=== PATIENT | male | born 1960 | race Caucasian/White ===

== ENCOUNTER 2020-11-22 15:18 | Outpatient (REF) | payer OTHER, SELFPAY | END 2020-11-22 15:19 | disposition home or self-care (01) | LOC: HO.LAB 15:18 | PROVIDERS: Visit Provider Nurse Practitioner Family | DX: L03.211 Cellulitis of face (principal); H00.019 Hordeolum externum unspecified eye, unspecified eyelid | CPT/HCPCS: 87071; 87077; 87186; 87205 ==

== ENCOUNTER 2020-12-11 11:18 | Outpatient (REF) | payer OTHER, SELFPAY ==
[2020-12-11 14:10] LABS: Basophils Percent Auto 0.8 % (0-2); MANUAL DIFF FLAG SCAN; Mean Corpuscular HGB Conc 33.3 g/dl (31.0-36.0); Monocytes Absolute Auto 0.5 X10*3/uL (0.1-1.2); PLT CLUMP 1; SCAN SMEAR FLAG 1
[2020-12-11 14:12] LABS: Eosinophils Absolute Auto 0.2 X10*3/uL (0.0-0.4); Eosinophils Percent Auto 3.3 % (0-4); Hematocrit 40.8 % (42-52); Hemoglobin 13.6 g/dl (14.0-18.0); Imm Gran Abs Auto 0.02 X10*3/uL (0.00-0.03); Imm Gran Pct Auto 0.4 % (0.0-0.4); Lymphocytes Absolute Auto 1.2 X10*3/uL (1.2-4.9); Lymphocytes Percent Auto 24.6 % (20-40); Mean Corpuscular Hemoglobin 31.2 pg (27.0-33.0); Mean Corpuscular Volume 93.6 fL (80-98); Mean Platelet Volume 11.4 fL (9.4-12.4); Monocytes Percent Auto 9.4 % (2-11); Neutrophils Percent Auto 61.5 % (45-73); Red Blood Count 4.36 X10*6/uL (4.60-5.80); Red Cell Distribution Width 13.3 % (11.0-16.0); White Blood Count 4.9 X10*3/uL (4.8-10.8)
[2020-12-11 14:38] LABS: Alanine Aminotransferase 110 U/L (0-40); Albumin Level 3.6 g/dL (3.5-5.0); Alkaline Phosphatase 97 U/L (39-117); Anion Gap 15 (12-20); Aspartate Amino Transferase 111 U/L (5-37); Bilirubin Total 1.5 mg/dL (0.0-1.0); Blood Urea Nitrogen 9 mg/dL (9-16); Calcium 9.4 mg/dL (8.4-10.2); Carbon Dioxide 23 mmol/L (22-29); Chloride 106 mmol/L (96-108); Estimated Glomerular Filt Rate > 60; Glucose Random 214 mg/dL (60-115); Potassium 3.9 mmol/L (3.3-5.1); Sodium 140 mmol/L (135-145)
[2020-12-11 14:43] LABS: Platelet Count 76 X10*3/uL (160-400)
[2020-12-11 14:44] LABS: SLIDE REVIEW VERIFIED
[2020-12-12 08:47] LABS: HIV AB/AG Nonreactive (Nonreactive); HIV Num 1 0.05 S/CO (0.00-0.99); Hepatitis B Surface Antigen Negative (Negative); ~HepC Num1 7.52 S/CO (0.00-0.79); ~Hepatitis C Antibody Reactive (Nonreactive)
[2020-12-12 08:48] LABS: HBS Num1 1.07 mIU/mL (0-7.99); HBc Num1 11.95 S/CO (0.00-0.79); ~Hepatitis B Surface Antibody NONREACTIVE (Nonreactive)
[2020-12-12 10:44] LABS: HBc Num2 12.06 S/CO; HBc Num3 11.38 S/CO; Hepatitis B Core Antibody Reactive (Nonreactive)
[2020-12-13 08:19] LABS: Hepatitis A Antibody IgM 0.23 Index (0-0.79); ~Hepatitis A Antibody IgM Nonreactive (Nonreactive)
[2020-12-13 14:22] LABS: Hepatitis B Core Antibody IgM NON-REACTIVE (NON-REACTIVE)
[2020-12-15 12:27] LABS: Vitamin C 0.5 mg/dL (0.2-2.1)
== END 2020-12-11 11:19 | disposition home or self-care (01) ==
LOC: HO.HMGCLDS 11:18
PROVIDERS: PCP Internal Medicine; Visit Provider Nurse Practitioner Family
DX: R23.3 Spontaneous ecchymoses (principal)
CPT/HCPCS: 36415; 80053; 82180; 85025; 86704; 86705; 86706; 86709; 86803; 87340; 87389

== ENCOUNTER 2020-12-13 13:50 | Emergency (ER) | payer OTHER, SELFPAY ==
[2020-12-13 14:00] VITALS: BP 91/59; PULSE 70; RESP 18; TEMP 36.8; O2SAT 96; BMI 28.1
--- NOTE | 2020-12-13 14:20 | ED.MEDCLEAR ---
HPI - Medical Clearance General Chief complaint: Medical Clearance <DEANNA Holland - Last Filed: 12/22/20 12:23> Stated complaint: medical clearance <DEANNA Holland - Last Filed: 12/22/20 12:23> Time Seen by Provider: 12/13/20 14:03 <DEANNA Holland - Last Filed: 12/22/20 12:23> History of Present Illness HPI Narrative: Patient who lives in a longterm admits to having 1 shot of alcohol and longterm requires an alcohol level, he has no complaint of illness or injury, he never lost consciousness he feels fine in his normal state of health <DEANNA Holland - Last Filed: 12/22/20 12:23> Related Information Home medications: Home Medications Medication Instructions Recorded Confirmed clonidine HCl 0.2 mg tablet 0.2 mg PO BEDTIME 09/09/20 09/09/20 dulaglutide 0.75 mg/0.5 mL 0.75 mg SUBCUT QWEEK 09/09/20 09/09/20 subcutaneous pen injector dulaglutide 0.75 mg/0.5 mL 1.5 mg SUBCUT QWEEK 09/09/20 09/09/20 subcutaneous pen injector folic acid 1 mg tablet 1 mg PO DAILY 09/09/20 09/09/20 furosemide 20 mg tablet 20 mg PO DAILY 09/09/20 09/09/20 gabapentin 800 mg tablet 800 mg PO TID 09/09/20 09/09/20 insulin degludec 100 unit/mL (3 20 unit SUBCUT BID 09/09/20 09/09/20 mL) subcutaneous pen levothyroxine 112 mcg tablet 112 mcg PO QAM 09/09/20 09/09/20 magnesium oxide,aspartate,citr mg PO 09/09/20 09/09/20 metformin 1,000 mg tablet 1,000 mg PO DAILY 09/09/20 09/09/20 metformin 500 mg tablet 1,000 mg PO 09/09/20 09/09/20 metoprolol succinate 25 mg 12.5 mg PO DAILY 09/09/20 09/09/20 tablet,extended release 24 hr multivitamin 1 tab PO DAILY 09/09/20 09/09/20 olanzapine 10 mg tablet 10 mg PO DAILY 09/09/20 09/09/20 pantoprazole 40 mg tablet,delayed 40 mg PO DAILY 09/09/20 09/09/20 release thiamine HCl (vitamin B1) 100 mg 100 mg PO DAILY 09/09/20 09/09/20 tablet triamcinolone acetonide 0.1 % 1 appl TOPICAL BID 09/09/20 09/09/20 topical cream clotrimazole 1 % topical cream appl TOPICAL 11/22/20 Previous Rx's Medication Instructions Recorded amoxicillin 875 mg-potassium 1 tab PO BID #20 tab 09/04/20 clavulanate 125 mg tablet doxycycline hyclate 100 mg tablet 100 mg PO BID #20 tab 09/04/20 meloxicam 15 mg tablet 15 mg PO DAILY #10 tab 09/09/20 doxycycline hyclate 100 mg tablet 100 mg PO BID 10 Days #20 tab 11/22/20 erythromycin 5 mg/gram (0.5 %) eye 1 appl OPHTHALMIC (EYE) QID 7 Days 11/22/20 ointment #3.5 g <DEANNA Holland - Last Filed: 12/22/20 12:23> Allergies/Adverse reactions: Allergies Allergy/AdvReac Type Severity Reaction Status Date / Time acetaminophen [ACETAMINOPHEN] Allergy Severe NECK Verified 12/13/20 14:03 SWELLING Penicillins [PENICILLINS] Allergy Severe vomitting Verified 12/13/20 14:03 Sulfa (Sulfonamide Allergy Mild ITCHING Verified 12/13/20 14:03 Antibiotics) [Sulfa (Sulfonamides)] quetiapine [From SEROQUEL] AdvReac Severe DYSKENESIA, Verified 12/13/20 14:03 SEVERE <DEANNA Holland - Last Filed: 12/22/20 12:23> Review of Systems Review of Systems: Negatives are no fever no chill no dizziness no weakness no fainting no headache no feeling faint no neck pain no back pain no chest pain no cough no runny nose no shortness of breath no palpitations no abdominal pain no nausea or vomiting <DEANNA Holland Last Filed: 12/22/20 12:23> Yes all other systems are reviewed and are negative <DEANNA Holland - Last Filed: 12/22/20 12:23> PMFSH Past Medical History Source: nursing notes reviewed <DEANNA Holland Last Filed: 12/22/20 12:23> Surgical History: Surgical History (Updated 12/13/20 @ 14:02 by Ernestina Santos RN) S/P triple vessel bypass <DEANNA Holland - Last Filed: 12/22/20 12:23> Social History Social History: Social History Advance Directives: No Advance Directives Information Provided: No <DEANNA Holland - Last Filed: 12/22/20 12:23> Physical Exam Vital Signs: Vital Signs: Last Vital Signs Temp 98.3 F 12/13/20 14:00 Pulse 70 12/13/20 14:00 Resp 18 12/13/20 14:00 BP 91/59 L 12/13/20 14:00 Pulse Ox 96 12/13/20 14:00 Body Mass Index 28.1 <DEANNA Holland - Last Filed: 12/22/20 12:23> Vital Signs: Last Vital Signs Temp 98.3 F 12/13/20 14:00 Pulse 70 12/13/20 14:00 Resp 18 12/13/20 14:00 BP 91/59 L 12/13/20 14:00 Pulse Ox 96 12/13/20 14:00 Body Mass Index 28.1 <Jayme Wilder MD - Last Filed: 01/23/21 18:49> Patient is calmer and cooperative A&O x3 Head is normocephalic atraumatic The neck is supple and nontender The chest is clear to auscultation bilaterally Heart no murmur Abdomen soft nontender Extremities is full range of motion x4 Skin no rash Neuro no gross deficit, speech and comprehension are normal, gait and balance are normal, no focal deficit <DEANNA Holland - Last Filed: 12/22/20 12:23> Course Course Course Narrative: Alcohol level was elevated but patient is clinically sober and in no distress and ambulates easily and is discharged back to the longterm <DEANNA Holland - Last Filed: 12/22/20 12:23> I have reviewed the chart <Jayme Wilder MD - Last Filed: 01/23/21 18:49> MDM - Medical Clearance Lab Data Labs: Lab Results 12/13/20 Range/Units 14:29 Ethyl Alcohol 130 mg/dL <DEANNA Holland - Last Filed: 12/22/20 12:23> Lab Results 12/13/20 Range/Units 14:29 Ethyl Alcohol 130 mg/dL <Jayme Wilder MD - Last Filed: 01/23/21 18:49> Discharge Plan Discharge Clinical Impression: Alcohol intoxication <DEANNA Holland - Last Filed: 12/22/20 12:23> Patient Disposition: Home, Self-Care <DEANNA Holland - Last Filed: 12/22/20 12:23> Additional Instructions: Alcohol level was 130 Patient has no sign of any significant injury or illness and is well-appearing Okay to return to longterm <DEANNA Holland - Last Filed: 12/22/20 12:23> Prescriptions: No Action metformin 500 mg tablet 1,000 mg PO RF: 0 olanzapine [Zyprexa] 10 mg tablet 10 mg PO DAILY RF: 0 gabapentin 800 mg tablet 800 mg PO TID RF: 0 metoprolol succinate 25 mg tablet extended release 24 hr 12.5 mg PO DAILY RF: 0 levothyroxine 112 mcg tablet 112 mcg PO QAM RF: 0 Trulicity 0.75 mg/0.5 mL pen injector 1.5 mg subcut QWEEK RF: 0 pantoprazole 40 mg tablet,delayed release (DR/EC) 40 mg PO DAILY RF: 0 furosemide [Lasix] 20 mg tablet 20 mg PO DAILY RF: 0 folic acid 1 mg tablet 1 mg PO DAILY RF: 0 magnesium oxide,aspartate,citr 400 mg magnesium capsule PO RF: 0 thiamine HCl (vitamin B1) 100 mg tablet 100 mg PO DAILY RF: 0 multivitamin Tablet 1 tab PO DAILY RF: 0 triamcinolone acetonide 0.1 % cream 1 appl topical BID RF: 0 clonidine HCl 0.2 mg tablet 0.2 mg PO BEDTIME RF: 0 Tresiba FlexTouch U-100 100 unit/mL (3 mL) insulin pen 20 unit subcut BID RF: 0 Trulicity 0.75 mg/0.5 mL pen injector 0.75 mg subcut QWEEK RF: 0 metformin 1,000 mg tablet 1,000 mg PO DAILY RF: 0 meloxicam [Mobic] 15 mg tablet 15 mg PO DAILY Qty: 10 RF: 0 clotrimazole 1 % cream topical RF: 0 erythromycin 5 mg/gram (0.5 %) ointment 1 appl ophthalmic (eye) QID 7 Days Qty: 3.5 RF: 0 doxycycline hyclate 100 mg tablet 100 mg PO BID 10 Days Qty: 20 RF: 0 doxycycline hyclate 100 mg tablet 100 mg PO BID Qty: 20 RF: 0 amoxicillin-pot clavulanate [Augmentin] 875-125 mg tablet 1 tab PO BID Qty: 20 RF: 0 <DEANNA Holland - Last Filed: 12/22/20 12:23> Interventions: ED Discharge Assessment Last Done: 12/13/20 15:28 <DEANNA Holland - Last Filed: 12/22/20 12:23> Discharge Date/Time: 12/13/20 15:31 <DEANNA Holland - Last Filed: 12/22/20 12:23>
[2020-12-13 15:02] LABS: Ethanol 130 mg/dL
== END 2020-12-13 15:31 | disposition home or self-care (01) ==
PROVIDERS: Physician Assistant Medical; Emergency Provider Emergency Medicine; PCP Internal Medicine
DX: F10.129 Alcohol abuse with intoxication, unspecified (principal); Y90.6 Blood alcohol level of 120-199 mg/100 ml; Z79.899 Other long term (current) drug therapy; Z71.41 Alcohol abuse counseling and surveillance of alcoholic
CPT/HCPCS: 36415; 80320; 99283

== ENCOUNTER 2021-02-20 13:45 | Outpatient (REF) | payer OTHER, SELFPAY | END 2021-02-20 13:46 | disposition home or self-care (01) | LOC: HO.MRI 13:45 | PROVIDERS: PCP Internal Medicine; Visit Provider Psychiatry & Neurology Neurology | DX: Z13.89 Encounter for screening for other disorder (principal) ==

== ENCOUNTER 2021-02-26 13:31 | Outpatient (REF) | payer OTHER, SELFPAY ==
--- NOTE | ~2021-02-26 | MR_ITS ---
EXAMINATION: MR BRAIN WITHOUT CONTRAST CLINICAL INFORMATION: Encephalopathy. Self-reported memory loss for [id number] years. COMPARISON: Maxillofacial radiographs 12/23/2018. CT cervical spine 05/13/2017. TECHNIQUE: Routine unenhanced MRI of the brain with additional coronal FLAIR images. FINDINGS: A moderate number of supratentorial scattered subcortical and periventricular white matter punctate T2 hyperintensities are identified. No perivenular lesions are visualized. No lesions of the middle cerebellar peduncles are noted. Mild-moderate diffuse commensurate prominence of the ventricles and sulci is noted. No disproportionate prominence of the temporal horns of the lateral ventricles is noted. No intracranial hemorrhage, tumors or acute infarcts are identified. The craniocervical junction and cerebellar tonsils are normal in configuration. No suspicious marrow abnormalities are identified. Normal flow-related signal intensity is identified in the major intracranial vessels and dural sinuses. Minimal scattered fluid signal intensity is noted in the mastoid air cells bilaterally and is of uncertain clinical significance. No significant mucosal thickening or retained secretions are noted within the paranasal sinuses. 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 Making allowances for expected artifacts, the orbits and globes are normal in appearance. MR/MR head/brain wo con IMPRESSION: 1. Mild-moderate white matter chronic small vessel ischemic changes and mild diffuse parenchymal volume loss of the brain. 2. No qualitative disproportional parenchymal volume loss of the hippocampi to specifically suggest Alzheimer's type neurodegenerative changes.
== END 2021-02-26 13:32 | disposition home or self-care (01) ==
LOC: HO.MRI 13:31
PROVIDERS: PCP Internal Medicine; Visit Provider Psychiatry & Neurology Neurology
DX: G93.40 Encephalopathy, unspecified (principal)
CPT/HCPCS: 70551

== ENCOUNTER 2021-03-01 12:17 | Outpatient (REF) | payer OTHER, SELFPAY ==
[2021-03-01 15:44] LABS: Folate 19.3 ng/mL (> or = 4.0); Vitamin B12 323 pg/mL (200-900)
[2021-03-02 08:26] LABS: Lyme Blot 1.78 index
[2021-03-03 09:30] LABS: Syphilis Screen Nonreactive (Nonreactive)
[2021-03-04 13:19] LABS: Lyme Abs Screen POSITIVE
[2021-03-04 13:29] LABS: 18 KD (IgG) Band NON-REACTIVE; 23 KD (IgG) Band NON-REACTIVE; 23 KD (IgM) Band NON-REACTIVE; 28 KD (IgG) Band NON-REACTIVE; 30 KD (IgG) Band NON-REACTIVE; 39 KD (IgM) Band NON-REACTIVE; 41 KD (IgM) Band NON-REACTIVE; 45 KD (IgG) Band NON-REACTIVE; 58 KD (IgG) Band NON-REACTIVE; 66 KD (IgG) Band NON-REACTIVE; 93 KD (IgG) Band NON-REACTIVE; Lyme IgG Blot Interp NEGATIVE (NEGATIVE); Lyme IgM Blot Interp NEGATIVE (NEGATIVE)
== END 2021-03-01 12:18 | disposition home or self-care (01) ==
LOC: HO.LAB 12:17
PROVIDERS: PCP Internal Medicine; Visit Provider Psychiatry & Neurology Neurology
DX: G93.40 Encephalopathy, unspecified (principal)
CPT/HCPCS: 36415; 82607; 82746; 86617; 86618; 86780

== ENCOUNTER 2021-09-11 10:02 | Outpatient (REF) | payer OTHER, SELFPAY ==
--- NOTE | 2021-09-11 | PFT_ITS ---
INDICATION: Shortness of breath. SPIROMETRY: FEV1 to FVC 81% with an FEV1 of 3.1 L, which is 98% predicted, and FVC of 3.84 L, which is 91% predicted. No significant response to bronchodilators noted. Maximum voluntary ventilation 90% predicted. LUNG VOLUMES: Total lung capacity 91% predicted. Residual volume 103% predicted. Expiratory reserve volume of 76% predicted. DIFFUSION CAPACITY: DLCO 60% predicted. COMPARISONS: None. INTERPRETATION: No obstructive nor restrictive ventilatory defects identified. No significant response to bronchodilators noted. Normal maximum voluntary ventilation. Lung volumes are within normal limits. However, the patient does have a moderate isolated diffusion impairment. Need to correct for hemoglobin. Otherwise, need to consider pulmonary vascular conditions and/or occult interstitial lung conditions. Clinical correlation warranted. Finn Melchor MD MR/MODL / [id number]
== END 2021-09-11 10:03 | disposition home or self-care (01) ==
LOC: HO.RESP 10:02
PROVIDERS: PCP Internal Medicine; Visit Provider Internal Medicine
DX: R06.02 Shortness of breath (principal)
CPT/HCPCS: 94060; 94727; 94729

== ENCOUNTER 2021-10-26 06:13 | Emergency (ER) | payer OTHER, SELFPAY ==
--- NOTE | ~2021-10-26 | CT_ITS ---
EXAMINATION: CT abdomen pelvis wo con CLINICAL INFORMATION: Reason for Exam R flank pain COMPARISON: No prior CT available for comparison. TECHNIQUE: Multidetector volumetric imaging was performed from the superior aspect of the liver through the pubic symphysis , noncontrasted study. Sagittal and coronal reformatted images were obtained on the technologist's workstation. This CT examination was performed using dose optimization techniques as appropriate, variously including the following: *Automated exposure control *Adjustment of mA and/or kV according to patient size (this includes techniques or standardized protocols for targeted exams where dose is matched to indication/reason for exam; i.e. extremities or head) *Use of iterative reconstruction technique DLP: 603 mGy-cm FINDINGS: LOWER THORAX: Included lung bases are clear. HEPATOBILIARY: Evaluation of the liver is limited on a noncontrasted study, there is heterogeneous texture of the liver, this combined with nodular surface raise concern for liver parenchymal disease liver cirrhosis. GALLBLADDER: Gallbladder unremarkable. SPLEEN: Spleen is enlarged 15 cm. PANCREAS: No focal mass or ductal dilatation. STOMACH AND GASTROINTESTINAL TRACT: Stomach is grossly unremarkable. There is no bowel distention or thickening. No CT evidence of appendicitis. ADRENALS: No adrenal nodules. KIDNEYS/URETERS: There are about 3 tiny nonobstructing stones in the lower calyces of the left kidney measuring up to 3 mm. There is a tiny 2 mm nonobstructing stone middle calyx right kidney. No hydronephrosis. Perinephric fat are clear. URINARY BLADDER: Partially decompressed. PELVIC VISCERA: There are prostate calcifications. Rectum and perirectal fat are clear. PERITONEUM: No free air or fluid. No ascites. LYMPH NODES: There are few mildly enlarged retroperitoneal para-aortic lymph nodes measuring up to 1 x 1.5 cm uncertain etiology. VASCULAR:There are aortic calcifications. Engorgement of the portal vein, splenic veins peritoneal anterior abdominal pain suggesting probably underlying portal hypertension portosystemic shunting BONES, ABDOMINAL WALL AND SOFT TISSUES: Cortical irregularity in the left iliac bone probably old injury. Mild arthritis. No destructive bone lesion. CT/CT abdomen pelvis wo con IMPRESSION: *Bilateral tiny nonobstructing kidney stones, no hydronephrosis. *Enlarged heterogeneous liver texture, nodular surface suggesting liver parenchymal disease likely hepatic cirrhosis. Evaluation of the liver is limited on noncontrasted study, may consider correlation with follow-up cross-sectional contrast enhanced liver protocol study CT scan or MRI. *Splenomegaly. *Engorgement of the portal veins and portal systemic anastomosis suggest underlying portal hypertension. No ascites. *Mildly enlarged retroperitoneal para-aortic lymph nodes preaortic lymph node measure up to 2 cm, uncertain etiology, this could be reactive versus neoplastic primary or metastatic,. Clinical correlation and follow-up recommended. (Referring physician staff is being called, to be alerted of the above findings and recommendations.) DC
--- NOTE | ~2021-10-26 | CT_ITS ---
EXAMINATION: CT CHEST, ABDOMEN AND PELVIS WITH CONTRAST CLINICAL INFORMATION: Assessing for possible malignancy. COMPARISON: Chest CT scan dated 05/01/2015. TECHNIQUE: Multidetector volumetric imaging was performed of the chest, abdomen and pelvis following IV administration of 100 mL of Omnipaque 300 intravenous contrast. Sagittal and coronal reformatted images were obtained on the technologist's workstation. There is some limitation secondary to respiratory motion artifact in the chest. This CT examination was performed using dose optimization techniques as appropriate, variously including the following: *Automated exposure control *Adjustment of mA and/or kV according to patient size (this includes techniques or standardized protocols for targeted exams where dose is matched to indication/reason for exam; i.e. extremities or head) DLP: 1348 mGy-cm FINDINGS: CHEST: LUNGS/PLEURA/AIRWAYS: Mild biapical scarring and subpleural cystic changes. Mild dependent atelectasis bilaterally, greatest in the lower lobes. No significant/suspicious pulmonary nodules are seen. There are no pleural effusions. The airways are patent. MEDIASTINUM: The thyroid gland is unremarkable. The thoracic aorta shows mild calcifications without significant dilatation. Moderate to severe coronary artery calcifications. No pericardial effusion. CHEST LYMPH NODES: Distal preesophageal nodule measuring 1.3 cm in short axis (image 45, series 5), (previously 0.9 cm). No significantly enlarged mediastinal, hilar or axillary lymph nodes. SOFT TISSUES: Unremarkable. ABDOMEN/PELVIS: LIVER, GALLBLADDER, AND BILIARY TREE: Diffuse decreased hepatic attenuation and nodular contour without enhancing abnormality. PANCREAS: Unremarkable. SPLEEN: 17.5 cm without focal abnormality (image 27, series 13). ADRENAL GLANDS: Unremarkable. KIDNEYS AND URETERS: Punctate calcification/calculi are seen bilaterally. No hydroureteronephrosis. BLADDER: Unremarkable. GASTROINTESTINAL TRACT: The stomach and proximal small bowel unremarkable. There is fecalization at the level the terminal ileum without abnormality. The ileocecal valve is unremarkable. The appendix is unremarkable. The colon and rectum are unremarkable. LYMPH NODES: Mildly prominent gastrohepatic lymph nodes. A customer contact representative lymph node measures 0.8 cm in short axis (image 55, series 5). VASCULAR: Mild to moderate atherosclerosis without significant dilatation. PELVIC VISCERA: Unremarkable. MUSCULOSKELETAL: Mild multilevel degenerative changes in the thoracolumbar spine without suspicious abnormality. SOFT TISSUES: Unremarkable. CT/CT abdomen pelvis w con IMPRESSION: 1. No definitive evidence for malignancy in the chest, abdomen and pelvis. There has been interval increase in size of a distal preesophageal nodule with otherwise benign features. The mild increase in size since 2015 suggests a benign/low-grade entity. This finding can be monitored for more short-term change with a repeat chest CT scan in 3-6 months. 2. Hepatic steatosis and cirrhosis and splenomegaly represent interval worsening from the previous study. Mildly enlarged gastrohepatic lymph nodes are similar. 3. Other incidental findings detailed above.
--- NOTE | ~2021-10-26 | CT_ITS ---
EXAMINATION: CT CHEST, ABDOMEN AND PELVIS WITH CONTRAST CLINICAL INFORMATION: Assessing for possible malignancy. COMPARISON: Chest CT scan dated 05/01/2015. TECHNIQUE: Multidetector volumetric imaging was performed of the chest, abdomen and pelvis following IV administration of 100 mL of Omnipaque 300 intravenous contrast. Sagittal and coronal reformatted images were obtained on the technologist's workstation. There is some limitation secondary to respiratory motion artifact in the chest. This CT examination was performed using dose optimization techniques as appropriate, variously including the following: *Automated exposure control *Adjustment of mA and/or kV according to patient size (this includes techniques or standardized protocols for targeted exams where dose is matched to indication/reason for exam; i.e. extremities or head) DLP: 1348 mGy-cm FINDINGS: CHEST: LUNGS/PLEURA/AIRWAYS: Mild biapical scarring and subpleural cystic changes. Mild dependent atelectasis bilaterally, greatest in the lower lobes. No significant/suspicious pulmonary nodules are seen. There are no pleural effusions. The airways are patent. MEDIASTINUM: The thyroid gland is unremarkable. The thoracic aorta shows mild calcifications without significant dilatation. Moderate to severe coronary artery calcifications. No pericardial effusion. CHEST LYMPH NODES: Distal preesophageal nodule measuring 1.3 cm in short axis (image 45, series 5), (previously 0.9 cm). No significantly enlarged mediastinal, hilar or axillary lymph nodes. SOFT TISSUES: Unremarkable. ABDOMEN/PELVIS: LIVER, GALLBLADDER, AND BILIARY TREE: Diffuse decreased hepatic attenuation and nodular contour without enhancing abnormality. PANCREAS: Unremarkable. SPLEEN: 17.5 cm without focal abnormality (image 27, series 13). ADRENAL GLANDS: Unremarkable. KIDNEYS AND URETERS: Punctate calcification/calculi are seen bilaterally. No hydroureteronephrosis. BLADDER: Unremarkable. GASTROINTESTINAL TRACT: The stomach and proximal small bowel unremarkable. There is fecalization at the level the terminal ileum without abnormality. The ileocecal valve is unremarkable. The appendix is unremarkable. The colon and rectum are unremarkable. LYMPH NODES: Mildly prominent gastrohepatic lymph nodes. A regional sales representative lymph node measures 0.8 cm in short axis (image 55, series 5). VASCULAR: Mild to moderate atherosclerosis without significant dilatation. PELVIC VISCERA: Unremarkable. MUSCULOSKELETAL: Mild multilevel degenerative changes in the thoracolumbar spine without suspicious abnormality. SOFT TISSUES: Unremarkable. CT/CT chest w con IMPRESSION: 1. No definitive evidence for malignancy in the chest, abdomen and pelvis. There has been interval increase in size of a distal preesophageal nodule with otherwise benign features. The mild increase in size since 2015 suggests a benign/low-grade entity. This finding can be monitored for more short-term change with a repeat chest CT scan in 3-6 months. 2. Hepatic steatosis and cirrhosis and splenomegaly represent interval worsening from the previous study. Mildly enlarged gastrohepatic lymph nodes are similar. 3. Other incidental findings detailed above.
--- NOTE | ~2021-10-26 | CT_ITS ---
EXAMINATION: CT HEAD WITHOUT CONTRAST CLINICAL INFORMATION: Assessing for primary malignancy. COMPARISON: MRI of the head dated 02/26/2021. TECHNIQUE: Contiguous axial imaging was performed from the skull base to vertex without intravenous administration of contrast. Coronal and sagittal reformatted images were obtained. This CT examination was performed using dose optimization techniques as appropriate, variously including the following: *Automated exposure control *Adjustment of mA and/or kV according to patient size (this includes techniques or standardized protocols for targeted exams where dose is matched to indication/reason for exam; i.e. extremities or head) *Use of iterative reconstruction technique DLP: 775 mGy-cm FINDINGS: There is mild widening of the cortical sulci and associated ventriculomegaly. Mild periventricular microvascular changes are seen. The lateral ventricles are symmetrical. The third and fourth ventricles are in their normal midline position. The basilar and prepontine cisterns are unremarkable. There is no acute intra or extracerebral abnormality. There is no mass effect or midline shift. Sections through the bony calvarium are unremarkable. The orbits are intact. Mild mucosal thickening in the ethmoid and sphenoid sinuses. No air-fluid levels. The mastoid air cells are clear. Deformity of the nasal bones with mild right lateral displacement. CT/CT head/brain wo con IMPRESSION: 1. No acute intracranial pathology. No evidence for intracranial mass. 2. Mild inflammatory changes in the paranasal sinuses as detailed above. 3. Probable old nasal bone fractures. Correlate with patient history.
[2021-10-26 06:26] VITALS: BP 132/82; BP 140/80; PULSE 69; PULSE 71; RESP 16; TEMP 36.7; O2SAT 97; O2SAT 98; BMI 27.7
--- NOTE | 2021-10-26 06:31 | ECG_ITS ---
Test Reason : ABD PAIN Blood Pressure : / mmHG Vent. Rate : 068 BPM Atrial Rate : 068 BPM P-R Int : 178 ms QRS Dur : 150 ms QT Int : 446 ms P-R-T Axes : 033 076 209 degrees QTc Int : 474 ms Normal sinus rhythm Possible Left atrial enlargement Left bundle branch block Abnormal ECG When compared with ECG of 01-MAY-2019 18:10, No significant change was found Referred By: Luz Marina Abdi Electronically Signed By:YAZMIN HUNTER MD
--- NOTE | 2021-10-26 06:40 | ED.GENADULT ---
HPI - General Adult General Chief complaint: Abdominal Pain Stated complaint: R flank pain Time Seen by Provider: 10/26/21 06:26 Source: patient Mode of arrival: ambulatory Limitations: no limitations History of Present Illness HPI narrative: Patient comes to the emergency room complaining of right-sided flank pain that started approximately 9 hours ago. Patient states it is sharp, radiates towards the right lower quadrant. Patient denies dysuria or hematuria. Patient complaining of nausea, vomiting diarrhea, no fever or chills. Related Data Home Medications Medication Instructions Recorded Confirmed clonidine HCl 0.2 mg tablet 0.2 mg PO BEDTIME 09/09/20 09/09/20 dulaglutide 0.75 mg/0.5 mL 1.5 mg SUBCUT QWEEK 09/09/20 09/09/20 subcutaneous pen injector dulaglutide 0.75 mg/0.5 mL 0.75 mg SUBCUT QWEEK 09/09/20 09/09/20 subcutaneous pen injector (Trulicity) folic acid 1 mg tablet 1 mg PO DAILY 09/09/20 09/09/20 furosemide 20 mg tablet (Lasix) 20 mg PO DAILY 09/09/20 09/09/20 gabapentin 800 mg tablet 800 mg PO TID 09/09/20 09/09/20 insulin degludec 100 unit/mL (3 20 unit SUBCUT BID 09/09/20 09/09/20 mL) subcutaneous pen (Tresiba FlexTouch U-100 insulin) levothyroxine 112 mcg tablet 112 mcg PO QAM 09/09/20 09/09/20 magnesium oxide,aspartate,citr mg PO 09/09/20 09/09/20 metformin 1,000 mg tablet 1,000 mg PO DAILY 09/09/20 09/09/20 metformin 500 mg tablet 1,000 mg PO 09/09/20 09/09/20 metoprolol succinate 25 mg 12.5 mg PO DAILY 09/09/20 09/09/20 tablet,extended release 24 hr multivitamin 1 tab PO DAILY 09/09/20 09/09/20 olanzapine 10 mg tablet (Zyprexa) 10 mg PO DAILY 09/09/20 09/09/20 pantoprazole 40 mg tablet,delayed 40 mg PO DAILY 09/09/20 09/09/20 release thiamine HCl (vitamin B1) 100 mg 100 mg PO DAILY 09/09/20 09/09/20 tablet triamcinolone acetonide 0.1 % 1 appl TOPICAL BID 09/09/20 09/09/20 topical cream clotrimazole 1 % topical cream appl TOPICAL 11/22/20 Previous Rx's Medication Instructions Recorded amoxicillin 875 mg-potassium 1 tab PO BID #20 tab 09/04/20 clavulanate 125 mg tablet (Augmentin) doxycycline hyclate 100 mg tablet 100 mg PO BID #20 tab 09/04/20 meloxicam 15 mg tablet (Mobic) 15 mg PO DAILY #10 tab 09/09/20 doxycycline hyclate 100 mg tablet 100 mg PO BID 10 Days #20 tab 11/22/20 erythromycin 5 mg/gram (0.5 %) eye 1 appl OPHTHALMIC (EYE) QID 7 Days 11/22/20 ointment #3.5 g ibuprofen 600 mg tablet 600 mg PO TID PRN #30 tab 10/26/21 Allergies Allergy/AdvReac Type Severity Reaction Status Date / Time acetaminophen [ACETAMINOPHEN] Allergy Severe NECK Verified 12/13/20 14:03 SWELLING Penicillins [PENICILLINS] Allergy Severe vomitting Verified 12/13/20 14:03 Sulfa (Sulfonamide Allergy Mild ITCHING Verified 12/13/20 14:03 Antibiotics) [Sulfa (Sulfonamides)] quetiapine [From SEROQUEL] AdvReac Severe DYSKENESIA, Verified 12/13/20 14:03 SEVERE Review of Systems Review of Systems: Constitutional : No Weight loss, No Fever, No Chills, No Night Sweats, No Fatigue, No Malaise ENT/Mouth : No Hearing loss, No Ear Pain, No Nasal Congestion, No Sinus Pain, No Hoarseness, No sore throat, No Rhinorrhea, No Swallowing Difficulty Eyes: No Eye Pain, No Swelling, No Redness, No Foreign Body, No Discharge, No Vision Changes Cardiovascular : No Chest Pain, No SOB, No Dyspnea on Exertion, No Orthopnea, No Edema, No Palpitations Respiratory : No Cough, No Sputum, No Wheezing, No Smoke Exposure, No Dyspnea Gastrointestinal : Complaining of nausea, No Vomiting, No Diarrhea, No Constipation, No abdominal Pain, No Hematochezia, No Melena Genitourinary : no irregular bleeding, No Dysuria, No Urinary Frequency, No Hematuria, No Urinary Incontinence, No Urgency, complaining of right-sided Flank Pain, No Urinary Flow Changes, No Hesitancy Musculoskeletal : No joint pain, No Myalgias, No Joint Swelling Skin : No Skin Lesions, No rash Neuro : No Weakness, No Numbness, No Paresthesias, No Loss of Consciousness, No Dizziness, No Headache Psych : No Anxiety/Panic, No Depression, No SI/HI/AH/VH, No Social Issues, Heme/Lymph: No Bruising, No Bleeding,No Lymphadenopathy Endocrine : No Polyuria, No Polydipsia, No Temperature Intolerance FOR[facility]LY [facility] Past Medical History Surgical History (Updated 12/13/20 @ 14:02 by Ernestina Santos RN) S/P triple vessel bypass Social History Social History Alcohol intake: current Alcohol type: wine Patient Tobacco Use Status: Current someday Tobacco user Use of substances other than those prescribed or required for medical reasons: No Advance Directives: Yes Advance Directives Information Provided: Yes Advance Directives on File: No Physical Exam ED Vital Signs: Vital Signs - 24 hr 10/26/21 06:26 10/26/21 07:40 10/26/21 08:57 Temperature 98.0 F 98.4 F 99.3 F Pulse Rate 71 74 72 Respiratory Rate 16 16 14 Blood Pressure 132/82 125/77 118/68 Pulse Oximetry 98 97 10/26/21 11:19 10/26/21 12:03 10/26/21 15:29 Temperature 97.8 F 97.8 F Pulse Rate 63 61 67 Respiratory Rate 17 16 Blood Pressure 124/75 129/71 153/86 H Pulse Oximetry 95 95 97 BMI result Body Mass Index 27.7 Const Other: Appearance: Alert. Oriented X3. No acute distress. Eyes: Pupils equal, round and reactive to light. ENT: Pharynx normal. Neck: Normal inspection. Neck supple. No lymph nodes noted. No crepitus CVS: Normal heart rate and rhythm. Pulses normal. Normal S1 and S2 Respiratory: No respiratory distress. Breath sounds normal. No Wheezing. No rales Abdomen: Soft , tenderness to palpation over the right upper quadrant, right lower quadrant and right flank Skin: Skin warm and dry. Normal skin color. Normal skin turgor. Extremities: No lower extremity edema. No Lacerations. No Rash Neuro: Oriented X 3. No motor deficit. No sensory deficit. Moving all extremities. No slurred speech. CN 2 through 12 grossly intact Psych: calm, cooperative, normal affect Course Course Course Narrative: Patient has no history urolithiasis. Patient will be given IV fluids, Toradol, although labs pending. Discussed the CT scan with the patient, patient states that he was unaware that he has cirrhosis. States he stopped drinking 3-4 months ago. Also, I discussed with the patient that there is a mildly enlarged retroperitoneal para aortic lymph node, uncertain etiology. I discussed the options with the patient, patient is extremely concerned, we will go ahead and order CT scan of head chest abdomen and pelvis to rule out malignancy. I discussed the CT findings with the patient, no signs of malignancy. Patient's pain likely musculoskeletal Medical Decision Making Lab Data Result diagrams: 10/26/21 06:42 10/26/21 06:42 Labs: Lab Results 10/26/21 10/26/21 10/26/21 Range/Units 06:42 06:42 11:16 WBC 6.4 (4.8-10.8) X10*3/uL RBC 4.59 L (4.60-5.80) X10*6/uL Hgb 13.6 L (14.0-18.0) g/dl Hct 40.6 L (42.0-52.0) % MCV 88.5 (80.0-98.0) fL MCH 29.6 (27.0-33.0) pg MCHC 33.5 (31.0-36.0) g/dl RDW 14.1 (11.0-16.0) % Plt Count 78 L (160-400) X10*3/uL MPV 9.9 (9.4-12.4) fL Immature Gran % (Auto) 0.6 H (0.0-0.4) % Neut % (Auto) 73.7 H (45-73) % Lymph % (Auto) 14.6 L (20-40) % [place] % (Auto) 8.6 (2-11) % Eos % (Auto) 1.9 (0-4) % Baso % (Auto) 0.6 (0-2) % Lymph # (Auto) 0.9 L (1.2-4.9) X10*3/uL [place] # (Auto) 0.6 (0.1-1.2) X10*3/uL Eos # (Auto) 0.1 (0.0-0.4) X10*3/uL Baso # (Auto) 0.0 (0.0-0.2) X10*3/uL Abs Immat Gran (auto) 0.04 H (0.00-0.03) X10*3/uL Absolute Neuts (auto) 4.7 (2.0-8.3) x10*3/uL Absolute Nucleated RBC 0.000 (0.0-0.012) X10*3/uL Nucleated RBC % (auto) 0.0 (0.0-0.2) /100WBC Sodium 135 (135-145) mmol/L Potassium 4.2 (3.3-5.1) mmol/L Chloride 100 (96-108) mmol/L Carbon Dioxide 26 (22-29) mmol/L Anion Gap 13 (12-20) BUN 11 (9-16) mg/dL Creatinine 1.09 (0.5-1.4) mg/dL Estim Creat Clear Calc 75.9 Estimated GFR > 60 POC Glucose 283 H (60-115) mg/dL Random Glucose 366 H* (60-115) mg/dL Calcium 9.5 (8.4-10.2) mg/dL Total Bilirubin 0.9 (0.0-1.0) mg/dL Direct Bilirubin 0.4 (0.0-0.5) mg/dL AST 49 H D (5-37) U/L ALT 71 H (0-40) U/L Alkaline Phosphatase 100 (39-117) U/L Total Protein 7.7 (6.5-8.0) g/dL Albumin 3.7 (3.5-5.0) g/dL Urine Color Urine Appearance Urine pH (5.0-8.0) Ur Specific Alex (1.005-1.025) Urine Protein (NEG-TRACE) MG/DL Urine Glucose (UA) (NEG) MG/DL Urine Ketones (NEG) MG/DL Urine Blood (NEG) Urine Nitrite (NEG) Ur Leukocyte Esterase (NEG) Urine RBC (0) /HPF Urine WBC (0-4) /HPF Ur Squamous Epith Cells /LPF Urine Bacteria /LPF Urine Mucus /LPF 10/26/21 Range/Units 11:17 WBC (4.8-10.8) X10*3/uL RBC (4.60-5.80) X10*6/uL Hgb (14.0-18.0) g/dl Hct (42.0-52.0) % MCV (80.0-98.0) fL MCH (27.0-33.0) pg MCHC (31.0-36.0) g/dl RDW (11.0-16.0) % Plt Count (160-400) X10*3/uL MPV (9.4-12.4) fL Immature Gran % (Auto) (0.0-0.4) % Neut % (Auto) (45-73) % Lymph % (Auto) (20-40) % [place] % (Auto) (2-11) % Eos % (Auto) (0-4) % Baso % (Auto) (0-2) % Lymph # (Auto) (1.2-4.9) X10*3/uL [place] # (Auto) (0.1-1.2) X10*3/uL Eos # (Auto) (0.0-0.4) X10*3/uL Baso # (Auto) (0.0-0.2) X10*3/uL Abs Immat Gran (auto) (0.00-0.03) X10*3/uL Absolute Neuts (auto) (2.0-8.3) x10*3/uL Absolute Nucleated RBC (0.0-0.012) X10*3/uL Nucleated RBC % (auto) (0.0-0.2) /100WBC Sodium (135-145) mmol/L Potassium (3.3-5.1) mmol/L Chloride (96-108) mmol/L Carbon Dioxide (22-29) mmol/L Anion Gap (12-20) BUN (9-16) mg/dL Creatinine (0.5-1.4) mg/dL Estim Creat Clear Calc Estimated GFR POC Glucose (60-115) mg/dL Random Glucose (60-115) mg/dL Calcium (8.4-10.2) mg/dL Total Bilirubin (0.0-1.0) mg/dL Direct Bilirubin (0.0-0.5) mg/dL AST (5-37) U/L ALT (0-40) U/L Alkaline Phosphatase (39-117) U/L Total Protein (6.5-8.0) g/dL Albumin (3.5-5.0) g/dL Urine Color YELLOW Urine Appearance CLEAR Urine pH 5.5 (5.0-8.0) Ur Specific Alex 1.025 (1.005-1.025) Urine Protein NEG (NEG-TRACE) MG/DL Urine Glucose (UA) >=1000 H (NEG) MG/DL Urine Ketones NEG (NEG) MG/DL Urine Blood NEG (NEG) Urine Nitrite NEG (NEG) Ur Leukocyte Esterase NEG (NEG) Urine RBC 0 (0) /HPF Urine WBC 0-2 (0-4) /HPF Ur Squamous Epith Cells NONE /LPF Urine Bacteria NONE /LPF Urine Mucus TRACE /LPF Imaging Data CT scan - head: Radiologist's impression: There is mild widening of the cortical sulci and associated ventriculomegaly. Mild periventricular microvascular changes are seen. The lateral ventricles are symmetrical. The third and fourth ventricles are in their normal midline position. The basilar and prepontine cisterns are unremarkable. There is no acute intra or extracerebral abnormality. There is no mass effect or midline shift. Sections through the bony calvarium are unremarkable. The orbits are intact. Mild mucosal thickening in the ethmoid and sphenoid sinuses. No air-fluid levels. The mastoid air cells are clear. Deformity of the nasal bones with mild right lateral displacement. CT/CT head/brain wo con IMPRESSION: 1. No acute intracranial pathology. No evidence for intracranial mass. 2. Mild inflammatory changes in the paranasal sinuses as detailed above. 3. Probable old nasal bone fractures. Correlate with patient history. Chest abdomen and pelvis CT scan: Radiologist's impression: FINDINGS: LOWER THORAX: Included lung bases are clear. HEPATOBILIARY: Evaluation of the liver is limited on a noncontrasted study, there is heterogeneous texture of the liver, this combined with nodular surface raise concern for liver parenchymal disease liver cirrhosis. GALLBLADDER: Gallbladder unremarkable. SPLEEN: Spleen is enlarged 15 cm. PANCREAS: No focal mass or ductal dilatation. STOMACH AND GASTROINTESTINAL TRACT: Stomach is grossly unremarkable. There is no bowel distention or thickening. No CT evidence of appendicitis. ADRENALS: No adrenal nodules. KIDNEYS/URETERS: There are about 3 tiny nonobstructing stones in the lower calyces of the left kidney measuring up to 3 mm. There is a tiny 2 mm nonobstructing stone middle calyx right kidney. No hydronephrosis. Perinephric fat are clear. URINARY BLADDER: Partially decompressed. PELVIC VISCERA: There are prostate calcifications. Rectum and perirectal fat are clear. PERITONEUM: No free air or fluid. No ascites. LYMPH NODES: There are few mildly enlarged retroperitoneal para-aortic lymph nodes measuring up to 1 x 1.5 cm uncertain etiology. VASCULAR:There are aortic calcifications. Engorgement of the portal vein, splenic veins peritoneal anterior abdominal pain suggesting probably underlying portal hypertension portosystemic shunting BONES, ABDOMINAL WALL AND SOFT TISSUES: Cortical irregularity in the left iliac bone probably old injury. Mild arthritis. No destructive bone lesion. CT/CT abdomen pelvis wo con IMPRESSION: *Bilateral tiny nonobstructing kidney stones, no hydronephrosis. ? *Enlarged heterogeneous liver texture, nodular surface suggesting liver parenchymal disease likely hepatic cirrhosis. Evaluation of the liver is limited on noncontrasted study, may consider correlation with follow-up cross-sectional contrast enhanced liver protocol study CT scan or MRI. ? *Splenomegaly. ? *Engorgement of the portal veins and portal systemic anastomosis suggest underlying portal hypertension. No ascites. ? *Mildly enlarged retroperitoneal para-aortic lymph nodes preaortic lymph node measure up to 2 cm, uncertain etiology, this could be reactive versus neoplastic primary or metastatic,. Clinical correlation ?and follow-up recommended. ? (Referring physician staff is being called, to be alerted of the above findings and recommendations.) ? DC Discharge Plan Discharge Clinical Impression: Acute right flank pain Patient Disposition: Home, Self-Care Instructions: Flank Pain (ED) Additional Instructions: Please follow-up with your primary care physician tomorrow. If you have any worsening or new symptoms, please return to the emergency room or call 911 Prescriptions: New ibuprofen 600 mg tablet 600 mg PO TID PRN (Reason: pain) Qty: 30 0RF No Action metformin 500 mg tablet 1,000 mg PO 0RF olanzapine [Zyprexa] 10 mg tablet 10 mg PO DAILY 0RF gabapentin 800 mg tablet 800 mg PO TID 0RF metoprolol succinate 25 mg tablet extended release 24 hr 12.5 mg PO DAILY 0RF levothyroxine 112 mcg tablet 112 mcg PO QAM 0RF Trulicity 0.75 mg/0.5 mL pen injector 1.5 mg subcut QWEEK 0RF pantoprazole 40 mg tablet,delayed release (DR/EC) 40 mg PO DAILY 0RF furosemide [Lasix] 20 mg tablet 20 mg PO DAILY 0RF folic acid 1 mg tablet 1 mg PO DAILY 0RF magnesium oxide,aspartate,citr 400 mg magnesium capsule PO 0RF thiamine HCl (vitamin B1) 100 mg tablet 100 mg PO DAILY 0RF multivitamin Tablet 1 tab PO DAILY 0RF triamcinolone acetonide 0.1 % cream 1 appl topical BID 0RF clonidine HCl 0.2 mg tablet 0.2 mg PO BEDTIME 0RF Tresiba FlexTouch U-100 100 unit/mL (3 mL) insulin pen 20 unit subcut BID 0RF Trulicity 0.75 mg/0.5 mL pen injector 0.75 mg subcut QWEEK 0RF metformin 1,000 mg tablet 1,000 mg PO DAILY 0RF meloxicam [Mobic] 15 mg tablet 15 mg PO DAILY Qty: 10 0RF clotrimazole 1 % cream topical 0RF erythromycin 5 mg/gram (0.5 %) ointment 1 appl ophthalmic (eye) QID 7 Days Qty: 3.5 0RF doxycycline hyclate 100 mg tablet 100 mg PO BID 10 Days Qty: 20 0RF doxycycline hyclate 100 mg tablet 100 mg PO BID Qty: 20 0RF amoxicillin-pot clavulanate [Augmentin] 875-125 mg tablet 1 tab PO BID Qty: 20 0RF
[2021-10-26 06:49] LABS: MANUAL DIFF FLAG NO
[2021-10-26 06:57] LABS: Basophils Percent Auto 0.6 % (0-2); Eosinophils Absolute Auto 0.1 X10*3/uL (0.0-0.4); Eosinophils Percent Auto 1.9 % (0-4); Hematocrit 40.6 % (42.0-52.0); Hemoglobin 13.6 g/dl (14.0-18.0); Imm Gran Abs Auto 0.04 X10*3/uL (0.00-0.03); Imm Gran Pct Auto 0.6 % (0.0-0.4); Lymphocytes Absolute Auto 0.9 X10*3/uL (1.2-4.9); Lymphocytes Percent Auto 14.6 % (20-40); Mean Corpuscular HGB Conc 33.5 g/dl (31.0-36.0); Mean Corpuscular Hemoglobin 29.6 pg (27.0-33.0); Mean Corpuscular Volume 88.5 fL (80.0-98.0); Mean Platelet Volume 9.9 fL (9.4-12.4); Monocytes Absolute Auto 0.6 X10*3/uL (0.1-1.2); Monocytes Percent Auto 8.6 % (2-11); Neutrophils Absolute Auto 4.7 x10*3/uL (2.0-8.3); Neutrophils Percent Auto 73.7 % (45-73); Red Blood Count 4.59 X10*6/uL (4.60-5.80); Red Cell Distribution Width 14.1 % (11.0-16.0); White Blood Count 6.4 X10*3/uL (4.8-10.8)
[2021-10-26 06:59] LABS: Platelet Count 78 X10*3/uL (160-400)
[2021-10-26 07:19] LABS: Alanine Aminotransferase 71 U/L (0-40); Albumin Level 3.7 g/dL (3.5-5.0); Alkaline Phosphatase 100 U/L (39-117); Anion Gap 13 (12-20); Aspartate Amino Transferase 49 U/L (5-37); Bilirubin Direct 0.4 mg/dL (0.0-0.5); Bilirubin Total 0.9 mg/dL (0.0-1.0); Blood Urea Nitrogen 11 mg/dL (9-16); Calcium 9.5 mg/dL (8.4-10.2); Carbon Dioxide 26 mmol/L (22-29); Chloride 100 mmol/L (96-108); Creatinine Clr Calc Pharmacy 75.9; Estimated Glomerular Filt Rate > 60; Glucose Random 366 mg/dL (60-115); Potassium 4.2 mmol/L (3.3-5.1); Sodium 135 mmol/L (135-145); Total Protein 7.7 g/dL (6.5-8.0)
[2021-10-26 07:40] VITALS: BP 125/77; PULSE 74; RESP 16; TEMP 36.9; O2SAT 97
[2021-10-26] MEDS: Insulin Regular, Human 100 UNIT/ML 3 ML VIAL 10 UNIT IVPUSH (07:45)
[2021-10-26] MEDS: Ketorolac Tromethamine 30 MG/ML VIAL IVPUSH (07:47)
[2021-10-26] MEDS: 0.9 % Sodium Chloride 1,000 ML 999 ML IVCONT (07:47)
[2021-10-26] MEDS: ondansetron HCL 4 MG/2 ML VIAL IVPUSH (07:47)
[2021-10-26 08:57] VITALS: BP 118/68; PULSE 72; RESP 14; TEMP 37.4
[2021-10-26 11:19] VITALS: BP 124/75; PULSE 63; RESP 17; TEMP 36.6; O2SAT 95
[2021-10-26 11:20] LABS: Glucose, Whole Blood 283 mg/dL (60-115)
[2021-10-26 11:32] LABS: Appearance Urine CLEAR; Color Urine YELLOW; Glucose Urine UA >=1000 MG/DL (NEG); Leukocyte Esterase Urine NEG (NEG); Nitrite Urine NEG (NEG); PH 5.5 (5.0-8.0); Specific Gravity - Urine 1.025 (1.005-1.025); Urine Blood NEG (NEG); Urine Ketones NEG (NEG); Urine Protein NEG (NEG-TRACE)
[2021-10-26 12:03] VITALS: BP 129/71; PULSE 61; O2SAT 95
[2021-10-26 12:07] LABS: RBC Urine 0 /HPF (0); WBC Urine 0-2 /HPF (0-4)
[2021-10-26 12:09] LABS: Mucus Urine TRACE /LPF
[2021-10-26 15:29] VITALS: BP 153/86; PULSE 67; RESP 16; TEMP 36.6; O2SAT 97
[2021-10-26] MEDS: traMADoL HCL 50 MG TABLET PO (16:42)
== END 2021-10-26 16:48 | disposition home or self-care (01) ==
PROVIDERS: Emergency Provider Emergency Medicine; PCP Internal Medicine
DX: R10.31 Right lower quadrant pain (principal); R51.9 Headache, unspecified; M54.6 Pain in thoracic spine; F17.200 Nicotine dependence, unspecified, uncomplicated; Z71.6 Tobacco abuse counseling; Z79.899 Other long term (current) drug therapy
CPT/HCPCS: 36415; 70450; 71260; 74176; 74177; 80048; 80076; 81001; 82947; 85025; 93005; 96361; 96374; 96375; 99284; 99285; J1885; J2405

== ENCOUNTER 2021-12-11 12:00 | Outpatient (REF) | payer OTHER, SELFPAY ==
[2021-12-11 12:39] LABS: MANUAL DIFF FLAG NO
[2021-12-11 12:55] LABS: Basophils Percent Auto 0.8 % (0-2); Eosinophils Absolute Auto 0.1 X10*3/uL (0.0-0.4); Eosinophils Percent Auto 2.1 % (0-4); Hematocrit 38.4 % (42.0-52.0); Hemoglobin 13.3 g/dl (14.0-18.0); Imm Gran Abs Auto 0.03 X10*3/uL (0.00-0.03); Imm Gran Pct Auto 0.6 % (0.0-0.4); Lymphocytes Absolute Auto 0.8 X10*3/uL (1.2-4.9); Lymphocytes Percent Auto 16.7 % (20-40); Mean Corpuscular HGB Conc 34.6 g/dl (31.0-36.0); Mean Corpuscular Hemoglobin 29.6 pg (27.0-33.0); Mean Corpuscular Volume 85.3 fL (80.0-98.0); Mean Platelet Volume 10.1 fL (9.4-12.4); Monocytes Absolute Auto 0.5 X10*3/uL (0.1-1.2); Monocytes Percent Auto 9.3 % (2-11); Neutrophils Absolute Auto 3.4 x10*3/uL (2.0-8.3); Neutrophils Percent Auto 70.5 % (45-73); Red Cell Distribution Width 14.8 % (11.0-16.0); White Blood Count 4.9 X10*3/uL (4.8-10.8)
[2021-12-11 12:56] LABS: Platelet Count 80 X10*3/uL (160-400)
[2021-12-11 13:36] LABS: Erythrocyte Sedimentation Rate 19 MM/HR (0-15)
[2021-12-11 13:44] LABS: Alanine Aminotransferase 60 U/L (0-40); Albumin Level 3.5 g/dL (3.5-5.0); Alkaline Phosphatase 107 U/L (39-117); Anion Gap 15 (12-20); Aspartate Amino Transferase 60 U/L (5-37); Blood Urea Nitrogen 14 mg/dL (9-16); Calcium 9.6 mg/dL (8.4-10.2); Carbon Dioxide 24 mmol/L (22-29); Chloride 104 mmol/L (96-108); Estimated Glomerular Filt Rate > 60; Glucose Random 311 mg/dL (60-115); Potassium 4.3 mmol/L (3.3-5.1); Sodium 139 mmol/L (135-145); Total Protein 7.4 g/dL (6.5-8.0)
[2021-12-11 13:54] LABS: Lactate Dehydrogenase 250 U/L (118-273)
== END 2021-12-11 12:01 | disposition home or self-care (01) ==
LOC: HO.LAB 12:00
PROVIDERS: PCP Internal Medicine; Visit Provider Internal Medicine Medical Oncology
DX: K22.9 Disease of esophagus, unspecified (principal)
CPT/HCPCS: 36415; 80053; 83615; 85025; 85652

== ENCOUNTER → 2021-12-14 15:03 | Outpatient (BNVA) | payer OTHER, SELFPAY | PROVIDERS: PCP Internal Medicine | DX: N20.0 Calculus of kidney (principal) | CPT/HCPCS: 99202 ==

== ENCOUNTER → 2021-12-25 12:11 | Outpatient (BNVA) | payer OTHER, SELFPAY | PROVIDERS: PCP Internal Medicine; Referring Provider Internal Medicine; Visit Provider Nurse Practitioner Family | DX: B18.2 Chronic viral hepatitis C (principal); K21.9 Gastro-esophageal reflux disease without esophagitis; K58.9 Irritable bowel syndrome, unspecified; R79.89 Other specified abnormal findings of blood chemistry; F10.21 Alcohol dependence, in remission; F14.90 Cocaine use, unspecified, uncomplicated | CPT/HCPCS: 99202; 99212 ==

== ENCOUNTER 2021-12-26 13:07 | Outpatient (REF) | payer OTHER, SELFPAY ==
[2021-12-26 14:43] LABS: C Reactive Protein 0.13 mg/dL (< or = 0.50)
[2021-12-27 05:05] LABS: HIV AB/AG Nonreactive (Nonreactive); HIV Num 1 0.05 S/CO (0.00-0.99)
[2021-12-27 11:40] LABS: H Pylori Breath Test Negative (Negative)
[2021-12-28 12:02] LABS: Alpha Fetoprotein 28.3 ng/mL (<6.1)
[2021-12-28 14:41] LABS: Ceruloplasmin 35 mg/dL (18-36)
[2021-12-31 04:58] LABS: FIB-ALT 60 U/L (9-46); FIB-Alpha-2-Macroglobulin 478 mg/dL (106-279); FIB-Apolipoprotein A1 128 mg/dL (94-176); FIB-GGT 176 U/L (3-70); FIB-Haptoglobin 33 mg/dL (43-212); FIB-Total Bilirubin 0.8 mg/dL (0.2-1.2); Liver Fibrosis Score 0.95; Liver Fibrosis Stage F4; Nec Inflam Act Grade A2
[2021-12-31 13:11] LABS: Smooth Muscle Antibody <20 U (<20)
[2022-01-01 14:42] LABS: Mitochondrial Antibodies NEGATIVE (NEGATIVE)
== END 2021-12-26 13:08 | disposition home or self-care (01) ==
LOC: HO.LAB 13:07
PROVIDERS: PCP Internal Medicine; Visit Provider Nurse Practitioner Family
DX: Z11.4 Encounter for screening for human immunodeficiency virus [HIV] (principal); R79.89 Other specified abnormal findings of blood chemistry; R74.8 Abnormal levels of other serum enzymes; K58.9 Irritable bowel syndrome, unspecified
CPT/HCPCS: 36415; 81596; 82105; 82390; 83013; 86015; 86140; 86255; 86256; 87389; 99211

== ENCOUNTER 2022-01-16 13:05 | Outpatient (REF) | payer OTHER, SELFPAY | END 2022-01-16 13:06 | disposition home or self-care (01) | LOC: HO.CT 13:05 | PROVIDERS: PCP Internal Medicine; Visit Provider Internal Medicine Medical Oncology | DX: Z13.89 Encounter for screening for other disorder (principal) ==

== ENCOUNTER 2022-01-20 03:13 | Emergency (ER) | payer OTHER, SELFPAY ==
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
[2022-01-20 03:20] VITALS: BP 83/47; PULSE 82; RESP 20; O2SAT 97; BMI 23.5
[2022-01-20 03:26] VITALS: BP 79/51
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
[2022-01-20 04:12] LABS: Hemoglobin 12.3 g/dl (14.0-18.0); Mean Corpuscular HGB Conc 32.4 g/dl (31.0-36.0); Mean Corpuscular Hemoglobin 28.9 pg (27.0-33.0); Mean Corpuscular Volume 89.2 fL (80.0-98.0); Mean Platelet Volume 10.2 fL (9.4-12.4); Platelet Count 161 X10*3/uL (160-400); Red Blood Count 4.26 X10*6/uL (4.60-5.80); Red Cell Distribution Width 16.3 % (11.0-16.0)
[2022-01-20 04:13] LABS: WBC ABN SCTR FOR CBC 1
[2022-01-20 04:33] LABS: Band Neutrophils Percent 6 % (3-5); Basophils Percent Manual 1 % (0-2); Eosinophils Percent Manual 1 % (0-4); Lymphocytes Percent Manual 7 % (20-40); Macrocytosis 1+ (5-14) /OIF; Monocytes Percent Manual 7 % (2-11); Myelocytes Percent 2 %; Neutrophils Percent Manual 76 % (45-73); Platelet Estimate SLIGHTLY DECREASED (NORMAL); RBC Morphology NOTED
[2022-01-20 04:34] LABS: Basophils Abs Manual 0.2 X10*3/uL (0.0-0.2); Eosinophils Absolute Manual 0.2 X10*3/uL (0.0-0.4); Lymphocytes Absolute Manual 1.6 X10*3/uL (1.2-4.9); Monocytes Absolute Manual 1.6 X10*3/uL (0.1-1.2); Myelocytes Absolute 0.5 X10*/uL; Neutrophils Absolute Manual 18.9 X10*3/uL (2.0-8.3); Ovalocytes 1+ (5-14) /OIF; Platelet Morphology Comment NORMAL; Smudge Cells PRESENT
[2022-01-20 04:35] LABS: Anion Gap 23 (12-20); Blood Urea Nitrogen 15 mg/dL (9-16); Calcium 8.5 mg/dL (8.4-10.2); Carbon Dioxide 11 mmol/L (22-29); Chloride 110 mmol/L (96-108); Estimated Glomerular Filt Rate 37; Ethanol 161 mg/dL; Glucose Random 302 mg/dL (60-115); Lipase 56 U/L (8-78); Sodium 140 mmol/L (135-145)
[2022-01-20 04:52] VITALS: BP 86/56; PULSE 83; RESP 22; O2SAT 95
[2022-01-20] MEDS: 0.9 % Sodium Chloride 1,000 ML 999 ML IV (05:08)
[2022-01-20 05:10] VITALS: BP 97/59; PULSE 89; RESP 18; O2SAT 97
[2022-01-20 05:23] VITALS: BP 105/63; PULSE 84; RESP 16; O2SAT 98
[2022-01-20 06:24] LABS: COVID-19 Test Negative (Negative); IDNOW Serial# 55D5AD1C
== END 2022-01-20 06:34 | disposition short-term general hospital (02) ==
PROVIDERS: Emergency Provider Emergency Medicine; PCP Internal Medicine
DX: S09.93XA Unspecified injury of face, initial encounter (principal); R51.9 Headache, unspecified; M54.2 Cervicalgia; M54.6 Pain in thoracic spine; R10.9 Unspecified abdominal pain; F17.200 Nicotine dependence, unspecified, uncomplicated; V43.62XA Car passenger injured in collision with other type car in traffic accident, initial encounter; Y93.9 Activity, unspecified; Y92.410 Unspecified street and highway as the place of occurrence of the external cause; Y99.9 Unspecified external cause status; Z20.822 Contact with and (suspected) exposure to COVID-19; Z79.899 Other long term (current) drug therapy; Z71.6 Tobacco abuse counseling
CPT/HCPCS: 36415; 70450; 70486; 71250; 72125; 74176; 80048; 82077; 83690; 85007; 85027; 87635; 96360; 99285

== ENCOUNTER 2022-02-08 10:12 | Outpatient (REF) | payer OTHER, SELFPAY ==
[2022-02-08 11:18] LABS: C Reactive Protein 0.14 mg/dL (< or = 0.50)
[2022-02-08 12:01] LABS: Folate > 20.0 ng/mL (> or = 4.0); Vitamin B12 367 pg/mL (200-900)
[2022-02-12 12:17] LABS: Transglutaminase Ab IgG <1.0 U/mL; Transglutaminase IgA <1.0 U/mL
[2022-02-12 14:07] LABS: HCV RNA PCR Qn 1330000 IU/mL (NOT DETECTED); HCV RNA PCR Qn 6.12 Log IU/mL (NOT DETECTED)
[2022-02-14 16:03] LABS: Vitamin D 25-OH, D2 <4 ng/mL; Vitamin D 25-OH, D3 36 ng/mL; Vitamin D 25-OH, Total 36 ng/mL (30-100)
[2022-02-18 22:07] LABS: HCV Genotype LiPA 1a
== END 2022-02-08 10:13 | disposition home or self-care (01) ==
LOC: HO.LAB 10:12
PROVIDERS: PCP Internal Medicine; Visit Provider Nurse Practitioner Family
DX: Z12.11 Encounter for screening for malignant neoplasm of colon (principal); R10.9 Unspecified abdominal pain; K58.9 Irritable bowel syndrome, unspecified; R19.7 Diarrhea, unspecified; E55.9 Vitamin D deficiency, unspecified
CPT/HCPCS: 36415; 82306; 82607; 82746; 84443; 86140; 86364; 87522; 87902; 99212

== ENCOUNTER 2022-02-14 13:19 | Outpatient (REF) | payer OTHER, SELFPAY ==
--- NOTE | ~2022-02-14 | US_ITS ---
EXAMINATION: US RETROPERITONEAL LIMITED (RENAL ONLY) CLINICAL INFORMATION: Calculus of kidney. COMPARISON: CT abdomen and pelvis 01/20/2022. TECHNIQUE: Real-time imaging of the kidneys. FINDINGS: RIGHT KIDNEY: 12.8 x 4.7 x 6.5 cm (SAG x AP x TRV). The kidney is normal in size, contour, and echogenicity. Renal cortical thickness is normal. No focal parenchymal lesions or hydronephrosis. At the lower pole, a 2 mm nonobstructing calculus is seen. LEFT KIDNEY: 13.2 x 5.9 x 7.1 cm (SAG x AP x TRV). The kidney is normal in size, contour, and echogenicity. Renal cortical thickness is normal. No focal parenchymal lesions or hydronephrosis. At the lower pole, a 4 mm nonobstructing calculus is seen. US/US renal BI IMPRESSION: Nonobstructing bilateral renal calculi are seen, as detailed. There is no hydronephrosis.
== END 2022-02-14 13:20 | disposition home or self-care (01) ==
LOC: HO.HMGCX 13:19
DX: N20.0 Calculus of kidney (principal)
CPT/HCPCS: 76775

== ENCOUNTER → 2022-04-10 11:57 | Outpatient (BNVA) | payer OTHER, SELFPAY | PROVIDERS: PCP Internal Medicine; Visit Provider Urology | DX: N20.0 Calculus of kidney (principal); B18.2 Chronic viral hepatitis C; K21.9 Gastro-esophageal reflux disease without esophagitis; K58.2 Mixed irritable bowel syndrome; K74.69 Other cirrhosis of liver; R76.8 Other specified abnormal immunological findings in serum | CPT/HCPCS: 99212; Q3014 ==

== ENCOUNTER 2022-04-15 14:04 | Outpatient (REF) | payer OTHER, SELFPAY ==
[2022-04-15 14:24] LABS: MANUAL DIFF FLAG NO
[2022-04-15 14:48] LABS: Basophils Percent Auto 0.6 % (0-2); Eosinophils Absolute Auto 0.1 X10*3/uL (0.0-0.4); Eosinophils Percent Auto 2.6 % (0-4); Hematocrit 40.2 % (42.0-52.0); Hemoglobin 13.5 g/dl (14.0-18.0); Imm Gran Abs Auto 0.02 X10*3/uL (0.00-0.03); Imm Gran Pct Auto 0.4 % (0.0-0.4); Lymphocytes Absolute Auto 0.8 X10*3/uL (1.2-4.9); Lymphocytes Percent Auto 15.7 % (20-40); Mean Corpuscular HGB Conc 33.6 g/dl (31.0-36.0); Mean Corpuscular Hemoglobin 28.5 pg (27.0-33.0); Mean Platelet Volume 11.3 fL (9.4-12.4); Monocytes Absolute Auto 0.6 X10*3/uL (0.1-1.2); Monocytes Percent Auto 10.9 % (2-11); Neutrophils Absolute Auto 3.7 x10*3/uL (2.0-8.3); Neutrophils Percent Auto 69.8 % (45-73); Red Blood Count 4.73 X10*6/uL (4.60-5.80); Red Cell Distribution Width 15.3 % (11.0-16.0); White Blood Count 5.3 X10*3/uL (4.8-10.8)
[2022-04-15 14:49] LABS: Platelet Count 76 X10*3/uL (160-400)
[2022-04-15 16:15] LABS: Blood Urea Nitrogen 9 mg/dL (9-16); Estimated Glomerular Filt Rate > 60
[2022-04-15 16:21] LABS: Alanine Aminotransferase 87 U/L (0-40); Albumin Level 3.9 g/dL (3.5-5.0); Alkaline Phosphatase 107 U/L (39-117); Anion Gap 17 (12-20); Aspartate Amino Transferase 74 U/L (5-37); Blood Urea Nitrogen 9 mg/dL (9-16); Calcium 9.5 mg/dL (8.4-10.2); Carbon Dioxide 22 mmol/L (22-29); Chloride 104 mmol/L (96-108); Estimated Glomerular Filt Rate > 60; Glucose Random 260 mg/dL (60-115); Lactate Dehydrogenase 234 U/L (118-273); Potassium 4.1 mmol/L (3.3-5.1); Sodium 139 mmol/L (135-145); Total Protein 7.9 g/dL (6.5-8.0)
[2022-04-17 14:41] LABS: HCV RNA PCR Qn 6.75 Log IU/mL (NOT DETECTED)
[2022-04-18 15:57] LABS: Hepatitis B Viral DNA Qn - cp <1.00 NOT DETECTED Log IU/mL (NOT DETECTED); Hepatitis B Viral DNA Qn-IU/mL <10 NOT DETECTED IU/mL (NOT DETECTED)
[2022-04-20 15:26] LABS: HCV Genotype LiPA 1a
== END 2022-04-15 14:05 | disposition home or self-care (01) ==
LOC: HO.LAB 14:04
PROVIDERS: Internal Medicine Medical Oncology; PCP Internal Medicine; Visit Provider Nurse Practitioner Family
DX: R59.9 Enlarged lymph nodes, unspecified (principal); R76.8 Other specified abnormal immunological findings in serum; B18.2 Chronic viral hepatitis C
CPT/HCPCS: 36415; 80053; 82565; 83615; 84520; 85025; 87517; 87902

== ENCOUNTER → 2022-06-17 10:31 | Outpatient (BNVA) | payer OTHER, SELFPAY | PROVIDERS: PCP Internal Medicine; Visit Provider Nurse Practitioner Family | DX: B18.2 Chronic viral hepatitis C (principal); K74.60 Unspecified cirrhosis of liver | CPT/HCPCS: 99212 ==

== ENCOUNTER 2022-06-21 15:27 | Outpatient (REF) | payer OTHER, SELFPAY ==
[2022-06-24 15:53] LABS: HCV Log PCR <1.18 NOT DETECTED Log IU/mL (NOT DETECTED); HepC Viral Load <15 NOT DETECTED IU/mL (NOT DETECTED)
[2022-06-25 14:24] LABS: Hepatitis B Viral DNA Qn - cp <1.00 NOT DETECTED Log IU/mL (NOT DETECTED); Hepatitis B Viral DNA Qn-IU/mL <10 NOT DETECTED IU/mL (NOT DETECTED)
== END 2022-06-21 15:28 | disposition home or self-care (01) ==
LOC: HO.LAB 15:27
PROVIDERS: PCP Internal Medicine; Visit Provider Nurse Practitioner Family
DX: B18.2 Chronic viral hepatitis C (principal)
CPT/HCPCS: 36415; 87517; 87522

== ENCOUNTER → 2022-07-01 12:23 | Outpatient (BNVA) | payer OTHER, SELFPAY | PROVIDERS: Visit Provider Nurse Practitioner Family | DX: B18.2 Chronic viral hepatitis C (principal); R07.9 Chest pain, unspecified; I25.2 Old myocardial infarction; Z79.899 Other long term (current) drug therapy | CPT/HCPCS: 99212 ==

== ENCOUNTER 2022-07-19 11:07 | Outpatient (REF) | payer OTHER, SELFPAY ==
[2022-07-19 11:25] LABS: MANUAL DIFF FLAG NO
[2022-07-19 11:49] LABS: Basophils Absolute Auto 0.1 X10*3/uL (0.0-0.2); Basophils Percent Auto 0.7 % (0-2); Eosinophils Absolute Auto 0.2 X10*3/uL (0.0-0.4); Eosinophils Percent Auto 2.2 % (0-4); Hematocrit 40.3 % (42.0-52.0); Hemoglobin 13.5 g/dl (14.0-18.0); Imm Gran Abs Auto 0.02 X10*3/uL (0.00-0.03); Imm Gran Pct Auto 0.2 % (0.0-0.4); Lymphocytes Absolute Auto 1.1 X10*3/uL (1.2-4.9); Lymphocytes Percent Auto 13.3 % (20-40); Mean Corpuscular HGB Conc 33.5 g/dl (31.0-36.0); Mean Corpuscular Hemoglobin 28.5 pg (27.0-33.0); Mean Platelet Volume 9.4 fL (9.4-12.4); Monocytes Absolute Auto 0.6 X10*3/uL (0.1-1.2); Monocytes Percent Auto 7.5 % (2-11); Neutrophils Absolute Auto 6.1 x10*3/uL (2.0-8.3); Neutrophils Percent Auto 76.1 % (45-73); Red Blood Count 4.74 X10*6/uL (4.60-5.80); Red Cell Distribution Width 14.8 % (11.0-16.0)
[2022-07-19 11:50] LABS: Platelet Count 95 X10*3/uL (160-400)
[2022-07-19 12:52] LABS: Alanine Aminotransferase 18 U/L (0-40); Albumin Level 4.3 g/dL (3.5-5.0); Alkaline Phosphatase 80 U/L (39-117); Anion Gap 12 (12-20); Aspartate Amino Transferase 26 U/L (5-37); Bilirubin Total 0.9 mg/dL (0.0-1.0); Blood Urea Nitrogen 12 mg/dL (9-16); Calcium 9.8 mg/dL (8.4-10.2); Carbon Dioxide 28 mmol/L (22-29); Chloride 106 mmol/L (96-108); Estimated Glomerular Filt Rate > 60; Glucose Random 100 mg/dL (60-115); Potassium 3.9 mmol/L (3.3-5.1); Sodium 142 mmol/L (135-145); Total Protein 8.1 g/dL (6.5-8.0)
[2022-07-20 15:57] LABS: HCV Log PCR <1.18 NOT DETECTED Log IU/mL (NOT DETECTED); HepC Viral Load <15 NOT DETECTED IU/mL (NOT DETECTED)
== END 2022-07-19 11:08 | disposition home or self-care (01) ==
LOC: HO.LAB 11:07
PROVIDERS: PCP Internal Medicine; Visit Provider Nurse Practitioner Family
DX: B18.2 Chronic viral hepatitis C (principal)
CPT/HCPCS: 36415; 80053; 85025; 87522; 87902

== ENCOUNTER → 2022-07-26 11:03 | Outpatient (BNVA) | payer OTHER, SELFPAY | PROVIDERS: PCP Internal Medicine; Visit Provider Nurse Practitioner Family | DX: B18.2 Chronic viral hepatitis C (principal) | CPT/HCPCS: 99212 ==

== ENCOUNTER 2022-08-19 11:17 | Outpatient (REF) | payer OTHER, SELFPAY ==
[2022-08-19 11:31] LABS: MANUAL DIFF FLAG NO
[2022-08-19 12:09] LABS: Basophils Percent Auto 0.8 % (0-2); Eosinophils Absolute Auto 0.1 X10*3/uL (0.0-0.4); Eosinophils Percent Auto 2.2 % (0-4); Hemoglobin 12.1 g/dl (14.0-18.0); Imm Gran Abs Auto 0.04 X10*3/uL (0.00-0.03); Imm Gran Pct Auto 0.8 % (0.0-0.4); Lymphocytes Percent Auto 19.5 % (20-40); Mean Corpuscular HGB Conc 32.7 g/dl (31.0-36.0); Mean Corpuscular Hemoglobin 27.6 pg (27.0-33.0); Mean Corpuscular Volume 84.5 fL (80.0-98.0); Mean Platelet Volume 10.5 fL (9.4-12.4); Monocytes Absolute Auto 0.5 X10*3/uL (0.1-1.2); Monocytes Percent Auto 10.5 % (2-11); Neutrophils Absolute Auto 3.3 x10*3/uL (2.0-8.3); Neutrophils Percent Auto 66.2 % (45-73); Red Blood Count 4.38 X10*6/uL (4.60-5.80); Red Cell Distribution Width 14.6 % (11.0-16.0)
[2022-08-19 12:11] LABS: Platelet Count 90 X10*3/uL (160-400)
[2022-08-19 12:44] LABS: Alanine Aminotransferase 29 U/L (0-40); Alkaline Phosphatase 90 U/L (39-117); Anion Gap 13 (12-20); Aspartate Amino Transferase 33 U/L (5-37); Bilirubin Total 0.6 mg/dL (0.0-1.0); Blood Urea Nitrogen 8 mg/dL (9-16); Calcium 9.7 mg/dL (8.4-10.2); Carbon Dioxide 24 mmol/L (22-29); Chloride 111 mmol/L (96-108); Estimated Glomerular Filt Rate > 60; Glucose Random 187 mg/dL (60-115); Potassium 3.6 mmol/L (3.3-5.1); Sodium 144 mmol/L (135-145); Total Protein 7.7 g/dL (6.5-8.0)
[2022-08-20 17:49] LABS: Hepatitis B Viral DNA Qn - cp <1.00 NOT DETECTED Log IU/mL (NOT DETECTED); Hepatitis B Viral DNA Qn-IU/mL <10 NOT DETECTED IU/mL (NOT DETECTED)
[2022-08-21 20:23] LABS: HCV Log PCR <1.18 NOT DETECTED Log IU/mL (NOT DETECTED); HepC Viral Load <15 NOT DETECTED IU/mL (NOT DETECTED)
== END 2022-08-19 11:18 | disposition home or self-care (01) ==
LOC: HO.LAB 11:17
PROVIDERS: PCP Internal Medicine; Visit Provider Nurse Practitioner Family
DX: B18.2 Chronic viral hepatitis C (principal)
CPT/HCPCS: 36415; 80053; 85025; 87517; 87522

== ENCOUNTER → 2022-08-23 13:10 | Outpatient (BNVA) | payer OTHER, SELFPAY | PROVIDERS: PCP Internal Medicine; Referring Provider Internal Medicine; Visit Provider Nurse Practitioner Family | DX: B18.2 Chronic viral hepatitis C (principal); Z23 Encounter for immunization | CPT/HCPCS: 90471; 90746; 99212 ==